=== PATIENT | female | born 1975 | race African-American/Black ===

== ENCOUNTER 2024-10-11 00:36 | Emergency (ER) | payer OTHER ==
[2024-10-11 01:18] LABS: #Basophils 0.03 10x3/uL (0.0-0.2); #Eosinophils 0.03 10x3/uL (0.0-0.5); #Monocytes 0.65 10x3/uL (0.0-1.1); %Basophils 0.2 % (0.0-2.0); %Eosinophils 0.2 % (0.0-6.0); %Lymphocytes 4.1 % (18.0-47.0); %Monocytes 5.3 % (0.0-10.0); %Neutrophils 89.8 % (40.0-75.0); Hematocrit 46.6 % (34.9-44.5); Hemoglobin 14.5 g/dL (12.0-15.5); Mean Corpuscular HGB CONC 31.1 g/dL (32.0-36.0); Mean Corpuscular Hemoglobin 26.4 pg (27.0-33.0); Mean Corpuscular Volume 84.7 fL (81.6-98.3); Mean Platelet Volume 10.6 fL (7.4-10.4); Platelet Count 222 10x3/uL (150-450); White Blood Cell (WBC) Count 12.26 10x3/uL (3.5-10.5)
[2024-10-11 01:35] LABS: ALT (SGPT) 30 U/L (Less than 34); AST (SGOT) 34 U/L (11-34); Albumin 4.4 g/dL (3.1-4.5); Alkaline Phosphatase 83 U/L (40-110); Anion Gap 15 mmol/L (10-20); BUN (Urea Nitrogen) 13 mg/dL (7.0-18.7); Bilirubin, Total 0.4 mg/dL (0.3-1.2); Calc. Creatinine Clearance 0 mL/min (70-130); Calcium 9.9 mg/dL (7.8-10.44); Carbon Dioxide 24 mmol/L (22-29); Chloride 108 mmol/L (98-107); Estimated GFR 91; Globulin 4.1 g/dL (2.4-3.5); Glucose 141 mg/dL (70-105); Lipase 18 U/L (8-78); Magnesium 1.8 mg/dL (1.6-2.6); Potassium 3.5 mmol/L (3.5-5.1); Protein, Total 8.5 g/dL (6.0-8.3); Sodium 143 mmol/L (136-145)
== END 2024-10-11 02:37 | disposition home or self-care (01) ==
LOC: CSHERS 00:36
DX: K52.9 Noninfective gastroenteritis and colitis, unspecified (principal)
CPT/HCPCS: 36415; 80053; 83690; 83735; 85025; 99284